=== PATIENT | male | born 1995 ===

== ENCOUNTER 2017-02-11 17:32 | Emergency (ER) | payer SELFPAY ==
[2017-02-11 17:45] VITALS: BP 147/96; PULSE 90; RESP 16; TEMP 98.5; O2SAT 99
--- NOTE | 2017-02-11 18:11 | C.PDOC ---
History Of Present Illness 21 year old male presents to the ED with complaints of bilateral foot swelling with "discomfort" noticed today. Patient notes occasional burning sensation to both feet. He states he used some over the counter creams but with no relief. Patient denies any pain or injury. Time Seen by Provider: 02/11/17 17:47 Chief Complaint (Nursing): Lower Extremity Problem/Injury History Per: Patient History/Exam Limitations: no limitations Onset/Duration Of Symptoms: Hrs Current Symptoms Are (Timing): Still Present Recent travel outside of the [place]: No Past Medical History Reviewed: Historical Data, Nursing Documentation, Vital Signs Vital Signs: Last Vital Signs Temp 98.5 F 02/11/17 17:43 Pulse 90 02/11/17 17:43 Resp 16 02/11/17 17:43 BP 147/96 H 02/11/17 17:43 Pulse Ox 99 02/11/17 19:06 - Medical History PMH: No Chronic Diseases Surgical History: No Surg Hx Family History: States: Unknown Family Hx - Social History Hx Alcohol Use: No Hx Substance Use: No - Immunization History Hx Tetanus Toxoid Vaccination: No Hx Influenza Vaccination: No Hx Pneumococcal Vaccination: No Review Of Systems Constitutional: Negative for: Fever Musculoskeletal: Positive for: Other (swelling to both feet with "discomfort" ) Neurological: Negative for: Weakness, Numbness Physical Exam - Physical Exam Appears: Non-toxic, No Acute Distress Skin: Warm, Dry Head: Atraumatic Eye(s): bilateral: Normal Inspection Oral Mucosa: Moist Neck: Supple Chest: Symmetrical Extremity: Normal ROM, No Tenderness, No Calf Tenderness, Capillary Refill ( good capillary refill, less than 2 seconds ), Swelling (mild swelling to bilateral feet), Other (Foul odor to bilateral feet, scaly and flaking rash to bilateral soles of feet spreading to inter-digits. Thickening and flaking of the toe nails bilaterally. No ulcers or oozing. ) Neurological/Psych: Oriented x3, Normal Speech Gait: Steady ED Course And Treatment O2 Sat by Pulse Oximetry: 99 (room air ) Medical Decision Making Medical Decision Making: Patient with foot complaint and exam consistent with Tinea pedis involving both feet and nails. Will prescribed cream and nail solution to use. Advise podiatry follow up. Disposition Counseled Patient/Family Regarding: Need For Followup, Rx Given - Disposition Referrals: Podiatry Clinic [Outside] Disposition: HOME/ ROUTINE Disposition Time: 18:08 Condition: STABLE Additional Instructions: apply cream to affected feet and solution to nails try to keep feet dry and change socks daily Prescriptions: Ciclopirox [Penlac] 6.6 ml TP DAILY #1 solution Terbinafine HCl [Lamisil At] 30 gm TP BID #1 cream..g. Instructions: Tinea Pedis (ED) - POA Present On Arrival: None - Clinical Impression Clinical Impression: Tinea pedis - Scribe Statement The provider has reviewed the documentation as recorded by the Scribe Chacha Andrew All medical record entries made by the Ana were at my direction and personally dictated by me. I have reviewed the chart and agree that the record accurately reflects my personal performance of the history, physical exam, medical decision making, and the department course for this patient. I have also personally directed, reviewed, and agree with the discharge instructions and disposition.
== END 2017-02-11 18:16 | disposition home or self-care (01) ==
LOC: C.ER 17:32
DX: B35.3 Tinea pedis (principal)

== ENCOUNTER 2017-07-31 13:33 | Emergency (ER) | payer OTHER ==
[2017-07-31 14:11] VITALS: RESP 18
--- NOTE | 2017-07-31 14:54 | C.PDOC ---
History Of Present Illness 22 year old male presents to the ER with a complaint of intermittent abdominal pain and watery diarrhea for the past 2-3 days. Denies nausea, vomiting, fever, back pain, Hx of abdominal surgery, or new foods. Time Seen by Provider: 07/31/17 14:14 Chief Complaint (Nursing): Abdominal Pain History Per: Patient History/Exam Limitations: no limitations Onset/Duration Of Symptoms: Days, Intermittent Episodes Current Symptoms Are (Timing): Still Present Location Of Pain/Discomfort: Diffuse Radiation Of Pain To:: None Quality Of Discomfort: Unable To Describe Associated Symptoms: Diarrhea. denies: Fever, Chills, Nausea, Vomiting Exacerbating Factors: None Alleviating Factors: None Recent travel outside of the [place]: No Past Medical History Reviewed: Historical Data, Nursing Documentation, Vital Signs Vital Signs: Last Vital Signs Temp 99.5 F 07/31/17 14:07 Pulse 93 H 07/31/17 14:07 Resp 18 07/31/17 14:07 BP 141/88 07/31/17 14:07 Pulse Ox 100 07/31/17 16:46 - Medical History PMH: No Chronic Diseases Family History: States: Unknown Family Hx - Social History Hx Alcohol Use: No Hx Substance Use: No - Immunization History Hx Tetanus Toxoid Vaccination: No Hx Influenza Vaccination: No Hx Pneumococcal Vaccination: No Review Of Systems Constitutional: Negative for: Fever, Chills Gastrointestinal: Positive for: Abdominal Pain, Diarrhea. Negative for: Nausea , Vomiting Physical Exam - Physical Exam Appears: Non-toxic, No Acute Distress Skin: Normal Color, Warm, Dry Head: Atraumatic, Normacephalic Eye(s): bilateral: Normal Inspection Oral Mucosa: Moist Chest: Symmetrical, No Tenderness Cardiovascular: Rhythm Regular Respiratory: Normal Breath Sounds, No Rales, No Rhonchi, No Wheezing Gastrointestinal/Abdominal: Soft, No Tenderness Neurological/Psych: Oriented x3, Normal Speech ED Course And Treatment - Laboratory Results Result Diagrams: 07/31/17 15:25 07/31/17 15:25 O2 Sat by Pulse Oximetry: 100 (Room air) Pulse Ox Interpretation: Normal Medical Decision Making Medical Decision Making: Blood work and urinalysis ordered. Pepcid and zofran administered. On re-exam, the patient reports improvement of symptoms. Abdomen is soft, non- tender and tolerating Po well. Lungs are CTA, heart is RRR. Follow up with the medical doctor within 1-2 days. Return if worsened. Disposition - Disposition Referrals: [facility] [Outside] Disposition: HOME/ ROUTINE Disposition Time: 16:46 Condition: GOOD Additional Instructions: Follow up with the medical doctor within 1-2 days. Return if worsened. Prescriptions: Famotidine [Pepcid] 20 mg PO BID #20 tab Ibuprofen [Motrin] 600 mg PO TID #21 tab Instructions: Acute Abdominal Pain (ED) Forms: [email or web address] (Croatian) - Clinical Impression Clinical Impression: Abdominal pain, Diarrhea - PA / CUSTOMER ASSISTANT / Resident Statement MD/DO has reviewed & agrees with the documentation as recorded. - Scribe Statement The provider has reviewed the documentation as recorded by the Scribjosé miguel Davis All medical record entries made by the Ebenibjosé miguel were at my direction and personally dictated by me. I have reviewed the chart and agree that the record accurately reflects my personal performance of the history, physical exam, medical decision making, and the department course for this patient. I have also personally directed, reviewed, and agree with the discharge instructions and disposition.
[2017-07-31 15:29] LABS: BASO # 0.1 K/uL (0.0-0.2); BASO % 0.6 % (0.0-2.0); EOS # 0.3 K/uL (0.0-0.7); LYMPH # 1.7 K/uL (1.0-4.3); LYMPH % 18.7 % (20.0-40.0); MEAN CELL VOLUME 83.2 fL (80.0-94.0); MEAN CORPUSCULAR HEMOGLOBIN 28.4 pg (27.0-31.0); MEAN CORPUSCULAR HGB CONC 34.2 g/dL (33.0-37.0); MEAN PLATELET VOLUME 9.7 fL (7.2-11.7); MONO # 0.6 K/uL (0.0-0.8); MONO % 6.7 % (0.0-10.0); NEUT # 6.6 K/uL (1.8-7.0); NRBC % 0.1 % (0.0-2.0); RBC 5.96 Mil/uL (4.40-5.90); RED CELL DISTRIBUTION WIDTH 14.6 % (11.5-14.5); WHITE BLOOD COUNT 9.3 K/uL (4.8-10.8)
[2017-07-31 15:42] LABS: CALCIUM 9.6 mg/dl (8.6-10.4); GFR AFRICAN-AMERICAN > 60; GFR NON-AFRICAN AMERICAN > 60; LIPASE 67 U/L (23-300)
[2017-07-31 15:49] LABS: ALB/GLOB RATIO 1.1 (1.0-2.1); ALBUMIN 4.5 g/dL (3.5-5.0); ALT/SGPT 21 U/L (21-72); AST/SGOT 30 U/L (17-59); BLOOD UREA NITROGEN 19 mg/dL (9-20)
[2017-07-31 17:34] VITALS: BP 127/74; PULSE 68; TEMP 98.1; O2SAT 98
== END 2017-07-31 17:44 | disposition home or self-care (01) ==
LOC: C.ER 13:33
DX: R19.7 Diarrhea, unspecified (principal); R10.9 Unspecified abdominal pain
CPT/HCPCS: 80053; 83690; 85025; 96374; 96375; 99284; J2405

== ENCOUNTER 2017-12-16 11:47 | Emergency (ER) | payer MEDICAID ==
[2017-12-16 11:58] VITALS: O2SAT 99
[2017-12-16] MEDS ORDERED: Sodium Chloride 0.9% 1,000 ML IV ONE (12:24)
--- NOTE | 2017-12-16 12:24 | C.PDOC ---
History Of Present Illness [id number] male with no PMHx presents to ED for complaints of abdominal pain associated with non-bloody diarrhea that began 2 days ago. Patient reports pain has improved. Denies fever, chills, urinary symptoms or recent travel. Time Seen by Provider: 12/16/17 12:06 Chief Complaint (Nursing): Abdominal Pain History Per: Patient History/Exam Limitations: no limitations Onset/Duration Of Symptoms: Hrs Current Symptoms Are (Timing): Still Present Location Of Pain/Discomfort: Diffuse Radiation Of Pain To:: None Quality Of Discomfort: "Pain" Associated Symptoms: Diarrhea. denies: Fever, Chills, Nausea, Vomiting, Urinary Symptoms Exacerbating Factors: None Alleviating Factors: None Last Bowel Movement: Today Recent travel outside of the [place]: No Past Medical History Reviewed: Historical Data, Nursing Documentation, Vital Signs Vital Signs: Last Vital Signs Temp 98.8 F 12/16/17 14:29 Pulse 57 L 12/16/17 14:29 Resp 16 12/16/17 14:29 BP 100/59 L 12/16/17 14:29 Pulse Ox 99 12/16/17 14:29 - Medical History PMH: No Chronic Diseases Surgical History: No Surg Hx Family History: States: Unknown Family Hx - Social History Hx Alcohol Use: No Hx Substance Use: No - Immunization History Hx Tetanus Toxoid Vaccination: No Hx Influenza Vaccination: No Hx Pneumococcal Vaccination: No Review Of Systems Except As Marked, All Systems Reviewed And Found Negative. Gastrointestinal: Positive for: Abdominal Pain, Diarrhea Physical Exam - Physical Exam Appears: Non-toxic, No Acute Distress Skin: Normal Color, Warm, Dry Head: Atraumatic, Normacephalic Eye(s): bilateral: Normal Inspection, PERRL, EOMI Nose: Normal Oral Mucosa: Moist Chest: Symmetrical, No Tenderness Cardiovascular: Rhythm Regular, No Murmur Respiratory: Normal Breath Sounds, No Decreased Breath Sounds, No Rales, No Rhonchi, No Wheezing Gastrointestinal/Abdominal: Bowel Sounds, Soft, Tenderness (Epigastric ), No Guarding, No Rebound Extremity: Normal ROM Extremity: Bilateral: Atraumatic, Normal Color And Temperature, Normal ROM Neurological/Psych: Oriented x3, Normal Speech, Normal Cognition Gait: Steady ED Course And Treatment - Laboratory Results Result Diagrams: 12/16/17 13:09 12/16/17 13:09 O2 Sat by Pulse Oximetry: 99 (RA) Pulse Ox Interpretation: Normal - Other Rad Abdomen Obstructive Series X-Ray X-Ray: Viewed By Me, Read By Radiologist Interpretation: Obstructive series four views. History: Abdominal pain. Comparison: None available. Findings: Lung alamo are clear. Heart size within normal limits. Few mildly distended loops of small bowel in the upper mid abdomen. Air seen within the colon. Impression: Nonspecific bowel gas pattern with a few mildly distended loops of small bowel in the upper and mid abdomen. Air seen within the colon. No evidence for gross obstruction. Clinical correlation. Medical Decision Making Medical Decision Making: Administered Toradol, Protonix, and IV fluids. Ordered Obstructive series X-Ray, blood work and urinalysis. Impression: - Abdominal Pain patient states improvement. Reviewed studies with patient. Will discharge home to follow up with pmd in 2 days.l Disposition Counseled Patient/Family Regarding: Studies Performed, Diagnosis, Need For Followup, Rx Given - Disposition Referrals: [facility] [Outside] Disposition: HOME/ ROUTINE Disposition Time: 14:42 Condition: IMPROVED Additional Instructions: follow up with medical clinic in 2 days call to make an appointment take medications as prescribed return to ER if symptoms worsens or progress Prescriptions: Famotidine [Pepcid] 20 mg PO BID #20 tab Naproxen [Naprosyn] 500 mg PO BID PRN #16 tab PRN Reason: Pain, Moderate (4-7) Instructions: Diarrhea in Adolescents and Adults, Acute Abdomen (Belly Pain), Adult (DC) Forms: Gen Discharge Inst Libyan, [employer] (Libyan) Print Language: HUNGARIAN - Clinical Impression Clinical Impression: Diarrhea, Abdominal pain - Scribe Statement The provider has reviewed the documentation as recorded by the Ana Grider All medical record entries made by the Ebenibjosé miguel were at my direction and personally dictated by me. I have reviewed the chart and agree that the record accurately reflects my personal performance of the history, physical exam, medical decision making, and the department course for this patient. I have also personally directed, reviewed, and agree with the discharge instructions and disposition.
[2017-12-16] MEDS ORDERED: Sodium Chloride 0.9% 1,000 ML ONE (12:51)
[2017-12-16 13:20] LABS: BASO # 0.1 K/uL (0.0-0.2); BASO % 0.5 % (0.0-2.0); EOS # 0.2 K/uL (0.0-0.7); EOS % 1.7 % (0.0-4.0); HEMOGLOBIN 15.8 g/dL (12.0-18.0); LYMPH # 1.5 K/uL (1.0-4.3); LYMPH % 14.7 % (20.0-40.0); MEAN CELL VOLUME 83.8 fL (80.0-94.0); MEAN CORPUSCULAR HEMOGLOBIN 28.7 pg (27.0-31.0); MEAN CORPUSCULAR HGB CONC 34.3 g/dL (33.0-37.0); MEAN PLATELET VOLUME 9.7 fL (7.2-11.7); MONO # 0.7 K/uL (0.0-0.8); MONO % 7.2 % (0.0-10.0); NEUT # 7.7 K/uL (1.8-7.0); NEUT % 75.9 % (50.0-75.0); NRBC % 0.1 % (0.0-2.0); RBC 5.51 Mil/uL (4.40-5.90); RED CELL DISTRIBUTION WIDTH 14.4 % (11.5-14.5); WHITE BLOOD COUNT 10.2 K/uL (4.8-10.8)
[2017-12-16 13:32] LABS: ALB/GLOB RATIO 1.2 (1.0-2.1); ALBUMIN 4.3 g/dL (3.5-5.0); ALT/SGPT 25 U/L (21-72); AST/SGOT 27 U/L (17-59); BLOOD UREA NITROGEN 14 mg/dL (9-20); CALCIUM 9.8 mg/dl (8.6-10.4); GFR AFRICAN-AMERICAN > 60; GFR NON-AFRICAN AMERICAN > 60; LIPASE 54 U/L (23-300)
--- NOTE | 2017-12-16 13:42 | RAD ---
Obstructive series four views History: Abdominal pain. Comparison: None available. Findings: Lung alamo are clear. Heart size within normal limits. Few mildly distended loops of small bowel in the upper mid abdomen. Air seen within the colon. Impression: Nonspecific bowel gas pattern with a few mildly distended loops of small bowel in the upper and mid abdomen. Air seen within the colon. No evidence for gross obstruction. Clinical correlation.
[2017-12-16 14:17] LABS: URINE BACTERIA RARE (<OCC); URINE BILIRUBIN NEGATIVE (NEGATIVE); URINE BLOOD NEGATIVE (NEGATIVE); URINE CLARITY Clear (Clear); URINE COLOR Yellow (YELLOW); URINE GLUCOSE (UA) NORMAL (Normal); URINE LEUKOCYTE ESTERASE NEG Leu/uL (Negative); URINE PROTEIN NEGATIVE (NEGATIVE); URINE UROBILINOGEN NORMAL mg/dL (0.2-1.0)
[2017-12-16 14:30] VITALS: BP 100/59; PULSE 57; RESP 16; TEMP 98.8
== END 2017-12-16 15:08 | disposition home or self-care (01) ==
LOC: C.ER 11:47
DX: R10.13 Epigastric pain (principal); R19.7 Diarrhea, unspecified
CPT/HCPCS: 74022; 80053; 81001; 83690; 85025; 96361; 96374; 96375; 99284; C9113; J1885; J7040